=== PATIENT | male | born 1950 | race Caucasian/White ===

== ENCOUNTER 2019-01-28 22:03 | Observation (INO) | payer MEDICARE, BC ==
--- OUTSIDE RECORDS SUMMARY | 2019-01-28 22:40 | XMS REPORT | Summary of Care ---
:1950 Author Organization [facility] Address [address] [place] [address] Care Team Providers Name Role Phone Jyoti Zamora MD Primary Care Provider Reason for Visit Reason Comments ED To ED Transfer Hematemesis Auth/Cert Status Reason Specialty Diagnoses / Procedures Referred By Contact Referred To Contact Diagnoses Hemoptysis Pneumonia of left upper lobe due to infectious organism Hemoptysis Encounter Details Date Type Department Care Team Description 01/25/2019 - Hospital 06E BURN ICU Saravanan Parmar MD [address] [place] [address] [phone] Pneumonia of left upper lobe due to infectious organism ( Primary Dx); 01/26/2019 Encounter [address] [facility] Valeriano Ramesh III, MD [address] [place] [address] [phone] Hemoptysis [place], [place] Terence Ellsworth MD [address] [facility] 2nd Floor [address] [place] [address] [phone] [id number] Allergies No Known Allergiesdocumented as of this encounter (statuses as of 01/26/2019) Medications Medication Sig Dispensed Refills Start Date End Date Status Rivaroxaban 20 MG Take 20 mg by 0 01/07/2019 Active Oral Tablet mouth daily (XARELTO) with dinner Atenolol 100 MG Take 100 mg 0 02/23/2018 Active Oral Tablet by mouth (TENORMIN) daily dilTIAZem HCl ER Take 2 30 capsule 1 01/26/2019 Active Coated Beads 120 capsules by MG Oral Capsule mouth daily Extended Release 24 Hour (CARDIZEM CD) levoFLOXacin 500 Take 1 tablet 7 tablet 0 01/26/2019 Active MG Oral Tablet by mouth 9 (LEVAQUIN) daily for 7 days dilTIAZem HCl ER Take 120 mg 0 02/23/2018 Discontinued Coated Beads 120 by mouth 9 (Reorder) MG Oral Capsule daily Extended Release 24 Hour (CARDIZEM CD) documented as of this encounter (statuses as of 01/26/2019) Active Problems Problem Noted Date Hemoptysis 01/25/2019 documented as of this encounter (statuses as of 01/26/2019) Social History Tobacco Use Types Packs/Day Years Used Date Former Smoker Smokeless Tobacco: Never Used Alcohol Use Drinks/Week oz/Week Comments Yes 6 Cans of beer 6.0 Sex Assigned at Date Recorded Not on file Job Start Date Occupation Industry Not on file Not on file Not on file Travel History Travel Start Travel End No recent travel history available. documented as of this encounter Last Filed Vital Signs Vital Sign Reading Time Taken Comments Blood Pressure 137/102 01/26/2019 1:00 PM EST Pulse 115 01/26/2019 2:00 PM EST Temperature 36.6 01/26/2019 12:00 PM C (97.9 EST F) Respiratory Rate 26 01/26/2019 2:00 PM EST Oxygen Saturation 89% 01/26/2019 2:00 PM EST Inhaled Oxygen Concentration - - Weight 116.7 kg (257 lb 4.4 oz) 01/25/2019 1:00 PM EST Height 195.6 cm (6' 5") 01/25/2019 1:00 PM EST Body Mass Index 30.51 01/25/2019 1:00 PM EST documented in this encounter Progress Notes Shelby Taversa, RN - 01/26/2019 2:13 PM EST 1100: Patients HR reaching into the 130's, Cardizem PO dose given 1135: Dr. Villalta notified of pt's HR despite Cardizem dose. 1145: One time dose of extra Cardizem ordered and given 1215: Dr. Ellsworth and team at bedside and pt's elevated HR and oxygen saturation discussed. Team to order pt's home dose of atenolol. Patient wishes to leave AMA. Risk factors explained and educated about complications of leaving AMA. Throughout day patient refusing to get OOB to chair or take a walk. Patient refusing to wear nasal canula, despite pt's 02 fluctuating between 87% and 92%. Patient educated on oxygen needs and was given and incentive spirometer and instructed on how to use it. Offered food once NPO order changed, patient stated "I do not want to eat, I will when I go home." Team aware Elsi Logan with Social work notified and at bedside. Discharge instructions reviewed with patient and . No further questions at this time. IV's removed. HR now in the low 100s/1 teens, BP stable. Patient instructed to use the incentive spirometer at home. Awaiting wheelchair to lobby. Elsi Arroyo [facility] - 01/26/2019 2:11 PM ESTSocial Work Note: SW was informed by RN that patient was requesting to leave Against Medical Advice. SW met with patient and his at bedside. They denied any SW needs and indicated that they wanted to leave. The patient's informed SW that they live close to a local hospital and will take him if there are any concerns. Elsi Logan [facility] Samreen Lennon RN - 01/25/2019 5:13 PM ESTPt stood at bedside to void in urinal with success. Pt SOB and tachicardic with this exertions. Pt placed on 2L nasal canula for comfort.Electronically signed by Samreen Corrales RN at 2018 5:15 PM Farhan Gay PharmD - 01/25/2019 3:34 PM EST Pharmacy Medication History Review Patient's Medications Previous Medications ATENOLOL 100 MG ORAL TABLET (TENORMIN) Take 100 mg by mouth daily Notes: -- DILTIAZEM HCL ER COATED BEADS 120 MG ORAL CAPSULE EXTENDED RELEASE 24 HOUR ( CARDIZEM CD) Take 120 mg by mouth daily Notes: -- RIVAROXABAN 20 MG ORAL TABLET (XARELTO) Take 20 mg by mouth daily with dinner Notes: -- The following medications have been added: The following medications have been removed: The following medications have been modified: atenolol, diltiazem The patient takes the following medications differently than prescribed: Medication History Source: [facility] [address] [place] [address] [place] [address] The above prior to admission medications have been compared to current inpatient orders. Discrepancies: Home medications not currently ordered. Recommendations: Please consider ordering missing home medications if/when appropriate. Medication history was completed based on information available during this patient encounter, the list above may not be all inclusive. Thank you, Farhan Cyr PharmD Jasiel Bee PharmD - 01/25/2019 8:37 AM EST Pharmacy Medication History Review Flo Valles'jess medication history was completed in the emergency department by a medication history component technician and independently reviewed by myself. Previous Medications ATENOLOL 100 MG ORAL TABLET (TENORMIN) Take 100 mg by mouth daily DILTIAZEM HCL ER COATED BEADS 120 MG ORAL CAPSULE EXTENDED RELEASE 24 HOUR ( CARDIZEM CD) Take 120 mg by mouth daily RIVAROXABAN 20 MG ORAL TABLET (XARELTO) Take 20 mg by mouth daily with dinner Medication History Source: [facility] [address] [place] [address] [place] [address] Jasiel Martínez PharmD Emergency Department Pharmacist Medication history was completed based on information available during this patient encounter, the list above may not be all inclusive. documented in this encounter Plan of Treatment Name Type Priority Associated Diagnoses Date/Time Blood culture ; Microbiology Routine 01/26/2019 5:16 AM Peripheral EST Blood culture ; Microbiology Routine 01/26/2019 5:16 AM Peripheral EST Name Type Priority Associated Order Schedule Diagnoses Oxygen Orders: Nasal Respiratory Care Routine Continuous for 30 Cannula; Liters per days for 30 Days minute: 2 LPM; D/C starting 01/25/2019 Oxygen 48hrs After until 02/24/2019 Being on Room Air: Yes; Wean/Titrate O2 to Keep Sats =>: 89 Basic Metabolic Lab Routine AM Draw for 5 Days Panel starting 01/25/2019 until 01/29/2019, 2 completed Magnesium Level Lab Routine AM Draw for 30 Days starting 01/25/2019 until 02/23/2019, 2 completed Phosphorus Level Lab Routine AM Draw for 30 Days starting 01/25/2019 until 02/23/2019, 2 completed Potassium Level Lab Timed As Needed for 1 Occurrences starting 01/25/2019 until 01/31/2019 Magnesium Level Lab Timed As Needed for 1 Occurrences starting 01/25/2019 until 01/31/2019 Phosphorus Level Lab Timed As Needed for 1 Occurrences starting 01/25/2019 until 01/31/2019 Calcium, ionized Lab Timed As Needed for 1 Occurrences starting 01/25/2019 until 01/31/2019 Legionella culture Microbiology Routine Once for 1 respiratory specimen Occurrences starting 01/25/2019 until 01/25/2019 Sputum Culture; Microbiology Routine Once for 1 Sputum Occurrences starting 01/25/2019 until 01/25/2019 Blood culture ; Microbiology Routine Once for 1 Peripheral Occurrences starting 01/25/2019 until 01/25/2019 Blood culture ; Microbiology Routine Once for 1 Peripheral Occurrences starting 01/25/2019 until 01/25/2019 Blood culture ; Microbiology Routine Once for 1 Peripheral Occurrences starting 01/26/2019 until 01/26/2019 Blood culture ; Microbiology Routine Once for 1 Peripheral Occurrences starting 01/26/2019 until 01/26/2019 Sputum Culture; Microbiology Routine Once for 1 Sputum Occurrences starting 01/26/2019 until 01/26/2019 CBC Lab Timed Every 6 Hours for 30 Days starting 01/26/2019 until 02/25/2019, 1 completed documented as of this encounter Procedures Procedure Name Priority Date/Time Associated Comments Diagnosis CBC Timed 01/26/2019 11:48 Results for this AM EST procedure are in the results section. RESPIRATORY PANEL Routine 01/26/2019 8:16 Results for this AM EST procedure are in the results section. HEPATITIS C ANTIBODY Routine 01/26/2019 5:16 Results for this AM EST procedure are in the results section. CBC Routine 01/26/2019 5:16 Results for this AM EST procedure are in the results section. PHOSPHORUS LEVEL Routine 01/26/2019 5:16 Results for this AM EST procedure are in the results section. MAGNESIUM LEVEL Routine 01/26/2019 5:16 Results for this AM EST procedure are in the results section. CALCIUM, IONIZED Routine 01/26/2019 5:16 Results for this AM EST procedure are in the results section. BASIC METABOLIC PANEL Routine 01/26/2019 5:16 Results for this AM EST procedure are in the results section. XR CHEST FRONTAL ONLY Routine 01/26/2019 2:57 Results for this [address] AM EST procedure are in the results section. LEGIONELLA ANTIGEN, Routine 01/25/2019 10:27 Results for this URINE AM EST procedure are in the results section. CBC Routine 01/25/2019 8:35 Results for this AM EST procedure are in the results section. PHOSPHORUS LEVEL Routine 01/25/2019 8:35 Results for this AM EST procedure are in the results section. MAGNESIUM LEVEL Routine 01/25/2019 8:35 Results for this AM EST procedure are in the results section. BASIC METABOLIC PANEL Routine 01/25/2019 8:35 Results for this AM EST procedure are in the results section. EKG ED PHYSICIAN Routine 01/25/2019 7:09 Results for this INTERPRETATION AM EST procedure are in the results section. CT THORAX WITH CONTRAST STAT 01/25/2019 6:19 [place] this [address] AM EST procedure are in the results section. CT ABDOMEN PELVIS WITH STAT 01/25/2019 6:19 Results for this CONTRAST 03732 AM EST procedure are in the results section. POCT ISTAT CHEM8 Routine 01/25/2019 5:53 Results for this AM EST procedure are in the results section. EKG 12-LEAD - CMAXX 01/25/2019 5:52 REPORT AM EST EKG 12-LEAD - CMAXX 01/25/2019 5:52 REPORT AM EST EKG 12-LEAD STAT 01/25/2019 5:52 Results for this AM EST procedure are in the results section. POCT ISTAT TROPONIN Routine 01/25/2019 5:47 Results for this AM EST procedure are in the results section. POCT ISTAT VBG/LAC Routine 01/25/2019 5:45 Results for this AM EST procedure are in the results section. PARTIAL THROMBOPLASTIN STAT 01/25/2019 5:40 Results for this TIME (PTT) AM EST procedure are in the results section. PROTIME INR STAT 01/25/2019 5:40 Results for this AM EST procedure are in the results section. FIBRINOGEN LEVEL STAT 01/25/2019 5:40 Results for this AM EST procedure are in the results section. CBC AND DIFFERENTIAL STAT 01/25/2019 5:40 Results for this AM EST procedure are in the results section. LIPASE LEVEL STAT 01/25/2019 5:40 Results for this AM EST procedure are in the results section. HEPATIC FUNCTION PANEL STAT 01/25/2019 5:40 Results for this A AM EST procedure are in the results section. BASIC METABOLIC PANEL STAT 01/25/2019 5:40 Results for this AM EST procedure are in the results section. documented in this encounter Results CBC (01/26/2019 11:48 AM EST) White Blood Cell 9.3 4 - 10 10*3/uL [facility] Pathology Red Blood Cell 3.57 (L) 4.6 - 6.1 [facility] 10*6/uL [facility] Pathology Hemoglobin 11.4 (L) 13.5 - 18 g/dL [facility]ology Hematocrit 33.8 (L) 41 - 53 % [facility] Mean Cell Volume 94.7 80 - 96 fL [facility] Mean Cell Hemoglobin 31.9 27 - 33 pg [facility] Mean Cell Hgb Conc 33.7 32.0 - 36.0 [facility] g/dL [facility] Pathology Red Cell Dist Width 13.5 11.5 - 14.5 % [facility] Pathology Platelet Count 182 150 - 400 [facility] 10*3/uL [facility] Pathology Specimen EDTA Whole Blood Performing Organization Address City/State/Zipcode Phone Number [facility] [address] [place] [address] [phone] [facility] [address] [place] [address] Pathology Respiratory Panel (01/26/2019 8:16 AM EST) Special Request None [facility] PATH[facility] Culture/Results Polymerase chain reaction is NEGATIVE for Influenza A H1, H3 and 2009 H1 viruses, Influenza B virus, Respiratory syncytial virus, Human metapneumovirus, Parainfluenza virus 1, 2, 3 and 4, Adenovirus, Rh [facility] inovirus/Enterovirus, Coronavirus HKU1, NL63, OC43, Univ [facility] and 229E, Bordetella pertussis, Mycoplasma pneumoniae and Chlamydia pneumoniae. Pathology Specimen Nasopharyngeal Swab Performing Organization Address City/[facility] Phone Number [facility] [address] [place] [address] [facility] [address] [place] [address] Pathology CBC (01/26/2019 5:16 AM EST) White Blood Cell 9.7 4 - 10 10*3/uL [facility]ology Red Blood Cell 3.60 (L) 4.6 - 6.1 [facility] 10*6/uL [facility] Pathology Hemoglobin 11.4 (L) 13.5 - 18 g/dL [facility]ology Hematocrit 34.6 (L) 41 - 53 % [facility] Mean Cell Volume 96.2 (H) 80 - 96 fL [facility] Mean Cell Hemoglobin 31.5 27 - 33 pg [facility] Mean Cell Hgb Conc 32.8 32.0 - 36.0 [facility] g/dL [facility] Pathology Red Cell Dist Width 14.0 11.5 - 14.5 % [facility] Pathology Platelet Count 167 150 - 400 [facility] 10*3/uL [facility] Pathology Specimen EDTA Whole Blood Performing Organization Address [facility] Phone Number [facility] [address] [place] [address] [facility] [address] [place] [address] Pathology Calcium, ionized (01/26/2019 5:16 AM EST) Pathologist [facility] Calcium Ionized,W.B. 1.03 (L) 1.13 - 1.32 [facility] mmol/L [facility] Pathology Specimen Whole Blood Performing Organization Address City/[facility] Phone Number [facility] [address] [place] [address] [facility] [address] [place] [address] Pathology Hepatitis C antibody (01/26/2019 5:16 AM EST) Pathologist [facility] Hepatitis C Ab Non ReactiveComment: Non Reactive [facility] No serological Univ [facility] evidence of active Pathology infection. If recent exposure is suspected, test for HCV RNA. Specimen Serum Performing Organization Address [facility] Phone Number [facility] [address] [place] [address] [facility] [address] [place] [address] Pathology Phosphorus Level (01/26/2019 5:16 AM EST) Phosphorus 1.9 (L) 2.5 - 4.5 mg/dL [facility] Specimen Plasma Performing Organization Address [facility] Phone Number [facility] [address] [place] [address] [facility] [address] [place] [address] Pathology Magnesium Level (01/26/2019 5:16 AM EST) Magnesium 2.0 1.6 - 2.4 mg/dL [facility] Specimen Plasma Performing Organization Address [facility] Phone Number [facility] [address] [place] [address] [phone] [facility] [address] [place] [address] Pathology Basic Metabolic Panel (01/26/2019 5:16 AM EST) Bicarbonate 22 22 - 29 mmol/L [facility]ology Chloride 101 98 - 107 mmol/L [facility] Creatinine 1.08 0.70 - 1.20 [facility] mg/dL [facility] Pathology Glucose 132 70 - 140 mg/dL [facility] Potassium 4.1 3.4 - 5.1 [facility] mmol/L [facility] Pathology Sodium 137 136 - 145 [facility] mmol/L [facility] Pathology Blood Urea Nitrogen 28 (H) 8 - 23 mg/dL [facility]ology Anion Gap 14 8 - 15 mmol/L [facility]ology Osmolality, Luis 291 275 - 300 [facility] mosm/kg [facility] Pathology BUN/Cre Ratio 26 [facility] Calcium 8.4 (L) 8.8 - 10.2 [facility] mg/dL [facility] Pathology GFR Non 70 >60 [facility] [place] 2009 CDK-EPI mL/min/1.73m2 [facility] Pathology GFR 81 >60 [facility] 2009 CKD-EPI mL/min/1.73m2 [facility] Pathology Specimen Plasma Performing Organization Address City/State/Zipcode Phone Number [facility] [address] [place] [address] [facility] [address] [place] [address] Pathology XR Chest Frontal Only (01/26/2019 2:57 AM EST) Specimen Narrative Performed At PROCEDURE INFORMATION: [facility] Exam: XR Chest, 1 View Exam date and time: 01/26/2019 2:47 AM Age: 68 years old Clinical history: Lobar pneumonia, unspecified organism; Hemoptysis; Other: Cap TECHNIQUE: Imaging protocol: XR of the chest Views: 1 view. COMPARISON: DX PORTABLE AP CHEST 01/25/2019 2:43 AM FINDINGS: Lungs: Mild hazy and patchy air space opacity let upper lobe as seen on prior study. Pleural space: Unremarkable. No pleural effusion. No pneumothorax. Heart/Mediastinum: Upper normal size of the cardiomediastinal silhouette. Vasculature: Thoracic aorta is mildly unfolded. Bones/joints: Chronic-degenerative changes involve the thoracic spine and bilateral shoulders. Other findings: Few overlying wires. IMPRESSION: Findings suspicious for left upper lobe consolidation/pneumonia. THIS DOCUMENT HAS BEEN ELECTRONICALLY SIGNED BY GRZEGORZ PAINTER MD Procedure Note Interface, Received Via [employer] - 01/26/2019 4:04 AM EST PROCEDURE INFORMATION: Exam: XR Chest, 1 View Exam date and time: 01/26/2019 2:47 AM Age: 68 years old Clinical history: Lobar pneumonia, unspecified organism; Hemoptysis; Other: Cap TECHNIQUE: Imaging protocol: XR of the chest Views: 1 view. COMPARISON: DX PORTABLE AP CHEST 01/25/2019 2:43 AM FINDINGS: Lungs: Mild hazy and patchy air space opacity let upper lobe as seen on prior study. Pleural space: Unremarkable. No pleural effusion. No pneumothorax. Heart/Mediastinum: Upper normal size of the cardiomediastinal silhouette. Vasculature: Thoracic aorta is mildly unfolded. Bones/joints: Chronic-degenerative changes involve the thoracic spine and bilateral shoulders. Other findings: Few overlying wires. IMPRESSION: Findings suspicious for left upper lobe consolidation/pneumonia. THIS DOCUMENT HAS BEEN ELECTRONICALLY SIGNED BY GRZEGORZ PAINTER MD Performing Organization Address City/[facility]/Zipcode Phone Number [facility] [address] [place] [address] Legionella antigen, urine (01/25/2019 10:27 AM EST) Special Request None [facility] Culture/Results Urine NEGATIVE for L. [facility] pneumophila serogroup 1 [facility] antigen by Pathology immunochromatographic assay. This test does not detect infections due to other L. pneumophila serogroups or to other Legionella species. Specimen Urine Performing Organization Address [facility] Phone Number [facility] [address] [place] [address] [phone] [facility] [address] [place] [address] Pathology CBC (01/25/2019 8:35 AM EST) White Blood Cell 9.7 4 - 10 10*3/uL [facility] Red Blood Cell 3.69 (L) 4.6 - 6.1 [facility] 10*6/uL [facility] Pathology Hemoglobin 11.7 (L) 13.5 - 18 g/dL [facility] Hematocrit 34.9 (L) 41 - 53 % [facility] Mean Cell Volume 94.8 80 - 96 fL [facility] Mean Cell Hemoglobin 31.6 27 - 33 pg [facility] Mean Cell Hgb Conc 33.4 32.0 - 36.0 [facility] g/dL [facility] Pathology Red Cell Dist Width 13.3 11.5 - 14.5 % [facility] Pathology Platelet Count 186 150 - 400 [facility] 10*3/uL [facility] Pathology Specimen EDTA Whole Blood Performing Organization Address City/[facility] Phone Number [facility] [address] [place] [address] [facility] [address] [place] [address] Pathology Phosphorus Level (01/25/2019 8:35 AM EST) Phosphorus 3.2 2.5 - 4.5 mg/dL [facility] Specimen Plasma Performing Organization Address City/[facility]/Zipcode Phone Number [facility] [address] [place] [address] [phone] [facility] [address] [place] [address] Pathology Magnesium Level (01/25/2019 8:35 AM EST) Magnesium 1.7 1.6 - 2.4 mg/dL [facility] Specimen Plasma Performing Organization Address [facility] Phone Number [facility] [address] [place] [address] [facility] [address] [place] [address] Pathology Basic Metabolic Panel (01/25/2019 8:35 AM EST) Bicarbonate 21 (L) 22 - 29 mmol/L [facility] Chloride 105 98 - 107 mmol/L [facility] Creatinine 0.94 0.70 - 1.20 [facility] mg/dL [facility] Pathology Glucose 150 (H) 70 - 140 mg/dL [facility] Potassium 4.8 3.4 - 5.1 [facility] mmol/L [facility] Pathology Sodium 138 136 - 145 [facility] mmol/L [facility] Pathology Blood Urea Nitrogen 19 8 - 23 mg/dL [facility] Anion Gap 13 8 - 15 mmol/L [facility]ology Osmolality, Luis 290 275 - 300 [facility] mosm/kg [facility] Pathology BUN/Cre Ratio 20 [facility] Calcium 8.3 (L) 8.8 - 10.2 [facility] mg/dL [facility] Pathology GFR Non 85 >60 [facility] [place] 2009 CDK-EPI mL/min/1.73m2 [facility] Pathology GFR >90 >60 [facility] 2009 CKD-EPI mL/min/1.73m2 [facility] Pathology Specimen Plasma Performing Organization Address [facility] Phone Number [facility] [address] [place] [address] [facility] [address] [place] [phone] Pathology 1ED EKG Interpretation (01/25/2019 7:09 AM EST) Narrative Performed At Saravanan Parmar MD EXTERNAL NON-INTERFACED LAB 01/25/2019 7:10 AM 1ED EKG Interpretation Date/Time: 01/25/2019 5:52 AM Performed by: Saravanan Parmar MD Authorized by: Saravanan Parmar MD Previous ECG: Previous ECG: Unavailable Interpretation: Interpretation: abnormal Rate: ECG rate: 117 ECG rate assessment: tachycardic Rhythm: Rhythm: atrial fibrillation Ectopy: Ectopy: none QRS: QRS axis: Normal Conduction: Conduction: normal ST segments: ST segments: Non-specific T waves: T waves: non-specific Comments: afibb with RVR at 117 No STEMI Performing Organization Address City/State/Zipcode Phone Number EXTERNAL NON-INTERFACED LAB CT Abdomen Pelvis with Contrast (01/25/2019 6:19 AM EST) Specimen Narrative Performed At PROCEDURE INFORMATION: [facility] Exam: CT Abdomen And Pelvis With Contrast Exam date and time: 01/25/2019 6:06 AM Age: 68 years old Clinical history: Other: Evaluate for bleeding; Additional info: Evaluate for intrabdominal bleeding sources. Hemoptysis but HX of ETOH use and on xarelto . TECHNIQUE: Imaging protocol: Computed tomography of the abdomen and pelvis with intravenous contrast. Radiation optimization: All CT scans at this facility use at least one of these dose optimization techniques: automated exposure control; mA and/or kV adjustment per patient size (includes targeted exams where dose is matched to clinical indication); or iterative reconstruction. Contrast material: OMNNI 300; Contrast volume: 100 ml; Contrast route: IV; COMPARISON: No relevant prior studies available. FINDINGS: Lungs: For chest finding, please see the dedicated CT of chest of same day for details. Liver: The liver appears unremarkable. Gallbladder and bile ducts: The gallbladder appears unremarkable. No calcified stones. No significant ductal dilatation. Pancreas: The pancreas is unremarkable. No significant ductal dilatation. Spleen: The spleen is unremarkable. Adrenals: The adrenal glands are unremarkable. Kidneys and ureters: A 1.7 cm right renal cyst (HU 16). No hydronephrosis. Nonspecific bilateral perinephric stranding. Stomach and bowel: Colonic diverticulosis with no evidence of acute diverticulitis. No bowel obstruction. Apparent mild mucosal thickening of the ascending and transverse colon, likely due to under distension/peristalsis. No significant surrounding fat stranding to suggest acute inflammation. Appendix: The appendix is not well visualized. Intraperitoneal space: No free air. No significant fluid collection. Vasculature: Atherosclerosis. No aortic aneurysm. Lymph nodes: Unremarkable. No enlarged lymph nodes. Bladder: The bladder appears unremarkable. Reproductive: Unremarkable as visualized. Bones/joints: Degenerative changes in the spine. Soft tissues: Unremarkable. IMPRESSION: Colonic diverticulosis with no evidence of acute diverticulitis. THIS DOCUMENT HAS BEEN ELECTRONICALLY SIGNED BY ALISE SANCHEZ MD Procedure Note Interface, Received Via [employer] - 01/25/2019 6:48 AM EST PROCEDURE INFORMATION: Exam: CT Abdomen And Pelvis With Contrast Exam date and time: 01/25/2019 6:06 AM Age: 68 years old Clinical history: Other: Evaluate for bleeding; Additional info: Evaluate for intrabdominal bleeding sources. Hemoptysis but HX of ETOH use and on xarelto . TECHNIQUE: Imaging protocol: Computed tomography of the abdomen and pelvis with intravenous contrast. Radiation optimization: All CT scans at this facility use at least one of these dose optimization techniques: automated exposure control; mA and/or kV adjustment per patient size (includes targeted exams where dose is matched to clinical indication); or iterative reconstruction. Contrast material: OMNNI 300; Contrast volume: 100 ml; Contrast route: IV; COMPARISON: No relevant prior studies available. FINDINGS: Lungs: For chest finding, please see the dedicated CT of chest of same day for details. Liver: The liver appears unremarkable. Gallbladder and bile ducts: The gallbladder appears unremarkable. No calcified stones. No significant ductal dilatation. Pancreas: The pancreas is unremarkable. No significant ductal dilatation. Spleen: The spleen is unremarkable. Adrenals: The adrenal glands are unremarkable. Kidneys and ureters: A 1.7 cm right renal cyst (HU 16). No hydronephrosis. Nonspecific bilateral perinephric stranding. Stomach and bowel: Colonic diverticulosis with no evidence of acute diverticulitis. No bowel obstruction. Apparent mild mucosal thickening of the ascending and transverse colon, likely due to under distension/peristalsis. No significant surrounding fat stranding to suggest acute inflammation. Appendix: The appendix is not well visualized. Intraperitoneal space: No free air. No significant fluid collection. Vasculature: Atherosclerosis. No aortic aneurysm. Lymph nodes: Unremarkable. No enlarged lymph nodes. Bladder: The bladder appears unremarkable. Reproductive: Unremarkable as visualized. Bones/joints: Degenerative changes in the spine. Soft tissues: Unremarkable. IMPRESSION: Colonic diverticulosis with no evidence of acute diverticulitis. THIS DOCUMENT HAS BEEN ELECTRONICALLY SIGNED BY ALISE SANCHEZ MD Performing Organization Address City/State/Zipcode Phone Number [facility] [address] [place] [address] CT Thorax with Contrast (01/25/2019 6:19 AM EST) Specimen Narrative Performed At PROCEDURE INFORMATION: [facility] Exam: CT Chest With Contrast Exam date and time: 01/25/2019 6:06 AM Age: 68 years old Clinical history: Other: Hemoptysis; Additional info: Concern for hemoptysis. On xarelto TECHNIQUE: Imaging protocol: Computed tomography of the chest with intravenous contrast. 3D rendering: MIP reconstructed images were created and reviewed. Radiation optimization: All CT scans at this facility use at least one of these dose optimization techniques: automated exposure control; mA and/or kV adjustment per patient size (includes targeted exams where dose is matched to clinical indication); or iterative reconstruction. Contrast material: OMNI 300; Contrast volume: 100 ml; Contrast route: IV; COMPARISON: DX PORTABLE AP CHEST 01/25/2019 2:43 AM FINDINGS: Lungs: Centrilobular and paraseptal emphysema. Patchy ground-glass opacities with numerous centrilobular nodules in the bilateral lungs, most significantly in the left upper lobe, most consistent with pneumonia. Pleural space: No pneumothorax. No pleural effusion. Heart: Mild cardiomegaly. No pericardial effusion. Aorta: Ectatic ascending aorta measuring up to 4.1 cm in AP diameter. Lymph nodes: Prominent mediastinal lymph nodes. Bones/joints: Degenerative changes in the spine. Soft tissues: Unremarkable. For abdominal finding, please see the dedicated CT of abdomen and pelvis of same day for details. IMPRESSION: Patchy ground-glass opacities with numerous centrilobular nodules in the bilateral lungs, most significantly in the left upper lobe, most consistent with pneumonia. Follow-up study is recommended to evaluate its resolution or progression. THIS DOCUMENT HAS BEEN ELECTRONICALLY SIGNED BY ALISE SANCHEZ MD Procedure Note Interface, Received Via [employer] - 01/25/2019 6:45 AM EST PROCEDURE INFORMATION: Exam: CT Chest With Contrast Exam date and time: 01/25/2019 6:06 AM Age: 68 years old Clinical history: Other: Hemoptysis; Additional info: Concern for hemoptysis. On xarelto TECHNIQUE: Imaging protocol: Computed tomography of the chest with intravenous contrast. 3D rendering: MIP reconstructed images were created and reviewed. Radiation optimization: All CT scans at this facility use at least one of these dose optimization techniques: automated exposure control; mA and/or kV adjustment per patient size (includes targeted exams where dose is matched to clinical indication); or iterative reconstruction. Contrast material: OMNI 300; Contrast volume: 100 ml; Contrast route: IV; COMPARISON: DX PORTABLE AP CHEST 01/25/2019 2:43 AM FINDINGS: Lungs: Centrilobular and paraseptal emphysema. Patchy ground-glass opacities with numerous centrilobular nodules in the bilateral lungs, most significantly in the left upper lobe, most consistent with pneumonia. Pleural space: No pneumothorax. No pleural effusion. Heart: Mild cardiomegaly. No pericardial effusion. Aorta: Ectatic ascending aorta measuring up to 4.1 cm in AP diameter. Lymph nodes: Prominent mediastinal lymph nodes. Bones/joints: Degenerative changes in the spine. Soft tissues: Unremarkable. For abdominal finding, please see the dedicated CT of abdomen and pelvis of same day for details. IMPRESSION: Patchy ground-glass opacities with numerous centrilobular nodules in the bilateral lungs, most significantly in the left upper lobe, most consistent with pneumonia. Follow-up study is recommended to evaluate its resolution or progression. THIS DOCUMENT HAS BEEN ELECTRONICALLY SIGNED BY ALISE SANCHEZ MD Performing Organization Address City/State/Zipcode Phone Number [facility] [address] [place] [address] POCT i-STAT Chem 8 (01/25/2019 5:53 AM EST) i-STAT Sodium 138 136 - 145 [facility] mmol/L [facility] POC i-STAT Potassium 4.9 3.4 - 5.1 [facility] mmol/L [facility] POC i-STAT Chloride 105 98 - 107 mmol/L [facility] POC i-STAT TCO2 23 22 - 29 mmol/L [facility] POC i-STAT Ionized 1.17 1.13 - 1.32 [facility] Calcium mmol/L [facility] POC i-STAT Glucose 168 (H) 70 - 140 mg/dL [facility] POC i-STAT BUN 18 8 - 23 mg/dL [facility] POC i-STAT Creatinine 1.0 0.70 - 1.20 [facility] mg/dL [facility] POC i-STAT Hematocrit 39 (L) 41 - 53 % [facility] POC i-STAT Hemoglobin 13.3 (L) 13.5 - 18.0 [facility] g/dL [facility] POC Specimen Whole Blood Performing Organization Address City/[facility]/Zipcode Phone Number POINT OF CARE TEST [address] [place] [address] [facility] POC [address] [place] [address] EKG 12-LEAD - CMAXX REPORT (01/25/2019 5:52 AM EST) Narrative Performed At EKG 12-LEAD - CMAXX REPORT (01/25/2019 5:52 AM EST) Narrative Performed At EKG 12 lead (01/25/2019 5:52 AM EST) Specimen Narrative Performed At Ventricular Rate: [facility] EKG 117 BPM Atrial Rate: 87 BPM QRS Duration: 76 ms Q-T Interval: 352 ms QTC Calculation(Bazett): 491 ms R Preble: 51 degrees T Preble: 49 degrees : ATRIAL FIBRILLATION WITH RAPID VENTRICULAR RESPONSE : RSR' OR QR PATTERN IN V1 SUGGESTS RIGHT VENTRICULAR CONDUCTION : DELAY : NONSPECIFIC ST AND T WAVE ABNORMALITY : ABNORMAL ECG : NO PREVIOUS ECGS AVAILABLE : Confirmed by MD CEBALLOS DANIEL ([id number]) on 01/25/2019 8:51:58 : AM Procedure Note Interface, Received Via [employer] - 01/25/2019 8:52 AM EST Ventricular Rate: 117 BPM Atrial Rate: 87 BPM QRS Duration: 76 ms Q-T Interval: 352 ms QTC Calculation(Bazett): 491 ms R Preble: 51 degrees T Preble: 49 degrees : ATRIAL FIBRILLATION WITH RAPID VENTRICULAR RESPONSE : RSR' OR QR PATTERN IN V1 SUGGESTS RIGHT VENTRICULAR CONDUCTION : DELAY : NONSPECIFIC ST AND T WAVE ABNORMALITY : ABNORMAL ECG : NO PREVIOUS ECGS AVAILABLE : Confirmed by MD CEBALLOS DANIEL ([id number]) on 01/25/2019 8:51:58 : AM Performing Organization Address City/[facility]/Zipcode Phone Number [facility] EKG POCT i-STAT Troponin (01/25/2019 5:47 AM EST) i-STAT Troponin I 0.00 0.00 - 0.08 ng/mL [facility] POC Specimen Whole Blood Performing Organization Address City/[facility] Phone Number POINT OF CARE TEST [address] [place], [place] [id number] [place] [address] POC [address] [place] [address] POCT i-STAT VBG Lactic Acid (01/25/2019 5:45 AM EST) i-STAT Venous pH 7.32 (L) 7.36 - 7.41 [facility] POC i-STAT Venous PCO2 43 40 - 45 mmHg [facility] POC i-STAT Venous PO2 61 mmHg [facility] POC i-STAT Venous Base NEG 4 mmol/L [facility] POC i-STAT Venous SO2 89 (H) 60 - 85 % [facility] POC i-STAT Venous Lactic 1.6 0.5 - 2.2 mmol/L [facility] POC i-STAT Venous Total 23 mmol/L [address] POC Specimen Whole Blood Performing Organization Address City/[facility] Phone Number POINT OF CARE TEST [address] [place], [place] [phone] [place] [address] POC [address] [place] [address] Fibrinogen Level (01/25/2019 5:40 AM EST) Fibrinogen 393 190 - 450 mg/dl [facility] Pathology Specimen Plasma Performing Organization Address [facility] Phone Number [facility] [address] [place] [address] [phone] [facility] [address] [place] [address] Pathology Partial Thromboplastin Time (PTT) (01/25/2019 5:40 AM EST) PTT Patient (PAT) 36.1 (H) 24.0 - 34.0 s [facility] Pathology Specimen Plasma Performing Organization Address [facility] Phone Number [facility] [address] [place] [address] [facility] [address] [place] [address] Pathology Protime-INR (01/25/2019 5:40 AM EST) PT Patient 21.7 (H) 12.5 - 14.9 [facility] Pathology Int'l Normalized 1.81Comment: Routine [facility] intensity oral [facility] anticoagulation INR is Pathology typically 2.0-3.0. Target INR must be clinically individualized. Specimen Plasma Performing Organization Address [facility] Phone Number [facility] [address] [place] [address] [phone] [facility] [address] [place] [address] Pathology Lipase Level (01/25/2019 5:40 AM EST) Lipase 22 13 - 60 U/L [facility] Pathology Specimen Plasma Performing Organization Address [facility] Phone Number [facility] [address] [place] [address] [phone] [facility] [address] [place] [address] Pathology Hepatic Function Panel (01/25/2019 5:40 AM EST) Albumin 4.1 3.5 - 5.2 g/dL [facility] Pathology Bilirubin, Total 0.3 <1.2 mg/dL [facility] Pathology Bilirubin, Direct <0.2 <0.3 mg/dL [facility] Pathology Alkaline Phosphatase 82 40 - 129 U/L [facility] Pathology AST/SGO 17 <40 U/L [facility] Pathology ALT/SGP 19 <41 U/L [facility] Pathology Total Protein 6.9 6.4 - 8.3 g/dL [facility] Pathology Specimen Plasma Performing Organization Address [facility] Phone Number [facility] [address] [place] [address] [facility] [address] [place] [phone] Pathology Basic Metabolic Panel (01/25/2019 5:40 AM EST) Bicarbonate 20 (L) 22 - 29 mmol/L [facility] Pathology Chloride 101 98 - 107 mmol/L [facility] Pathology Creatinine 0.97 0.70 - 1.20 [facility] mg/dL Univ Clin Pathology Glucose 167 (H) 70 - 140 mg/dL [facility] Pathology Potassium 5.0 3.4 - 5.1 [facility] mmol/L [facility] Pathology Sodium 137 136 - 145 [facility] mmol/L [facility] Pathology Blood Urea Nitrogen 18 8 - 23 mg/dL [facility] Pathology Anion Gap 17 (H) 8 - 15 mmol/L [facility] Pathology Osmolality, Luis 290 275 - 300 [facility] mosm/kg [facility] Pathology BUN/Cre Ratio 18 [facility] Pathology Calcium 8.3 (L) 8.8 - 10.2 [facility] mg/dL [facility] Pathology GFR Non 84 >60 [facility] [place] 2008 CDK-EPI mL/min/1.73m2 [facility] Pathology GFR >90 >60 [facility] 2009 CKD-EPI mL/min/1.73m2 [facility] Pathology Specimen Plasma Performing Organization Address City/State/Zipcode Phone Number [facility] [address] [place] [address] [phone] [facility] [address] [place] [address] Pathology CBC and Differential (01/25/2019 5:40 AM EST) White Blood Cell 10.5 (H) 4 - 10 [facility] 10*3/uL [facility] Pathology Red Blood Cell 3.87 (L) 4.6 - 6.1 [facility] 10*6/uL [facility]ology Hemoglobin 12.0 (L) 13.5 - 18 [facility] g/dL [facility] Pathology Hematocrit 36.4 (L) 41 - 53 % [facility] Pathology Mean Cell Volume 94.1 80 - 96 fL [facility] Pathology Mean Cell Hemoglobin 31.0 27 - 33 pg [facility] Pathology Mean Cell Hgb Conc 32.9 32.0 - 36.0 [facility] g/dL [facility] Pathology Red Cell Dist Width 13.4 11.5 - 14.5 % [facility] Pathology Platelet Count 195 150 - 400 [facility] 10*3/uL [facility] Pathology Differential Type Automated Diff [facility] Pathology Neutrophil 91 % [facility] Pathology Lymphocyte 5 % [facility] Pathology Monocyte 4 % [facility] Pathology Eosinophil 0 % [facility] Pathology Basophil 0 % [facility] Pathology Abs Neutrophil 9.58 (H) 1.8 - 7.0 [facility] 10*3/uL [facility] Pathology Abs Lymphocyte 0.47 (L) 1.2 - 4.0 [facility] 10*3/uL [facility] Pathology Abs Monocyte 0.40 0 - 0.8 [facility] 10*3/uL [facility] Pathology Abs Eosinophil 0.01 0 - 0.5 [facility] 10*3/uL [facility] Pathology Abs Basophil 0.03 0 - 0.2 [facility] 10*3/uL [facility] Pathology Nucleated Red Blood 0 0 - 0 [facility] Cells /100{WBCs} [facility] Pathology Specimen EDTA Whole Blood Performing Organization Address City/State/Zipcode Phone Number [facility] [address] [place] [address] [phone] [facility] [address] [place] [address] Pathology documented in this encounter Visit Diagnoses Diagnosis Pneumonia of left upper lobe due to infectious organism - Primary Hemoptysis Hemoptysis, unspecified documented in this encounter Administered Medications Medication Order MAR Action Action Date Dose Rate Site atenolol (TENORMIN) tablet 100 mg Given 01/26/2019 1:44 PM EST 100 mg 100 mg, Oral, Daily Standard, First dose on Fri01/26/19 at 1315, For 30 days, Check vital signs before administering, azithromycin (ZITHROMAX) 500 mg in New Bag 01/26/2019 7:50 AM EST 500 mg 250 mL/hr sodium chloride 0.9 % 250 mL (2 mg/mL) IVPB 500 mg, Intravenous, at 250 mL/hr, Every 24 hours, First dose on Fri01/26/19 at 0000, For 5 days cefTRIAXone (ROCEPHIN) infusion 1 g New Bag 01/26/2019 7:51 AM EST 1 g 100 mL/hr (premix) 1 g, Intravenous, at 100 mL/hr, Every 24 hours, First dose on Fri01/26/19 at 0800, For 7 days, Discouraged Uses: Empiric treatment of post-surgical meningitis (ceftazidime preferred), dilTIAZem (CARDIZEM) tablet 60 mg 60 mg, Oral, Every 6 hours Standard (4 times per day), First dose (after last modification) on Fri01/26/19 at 1800, For 117 doses, Check vital signs before administering, folic acid (FOLVITE) tablet 1 mg Given 01/26/2019 7:51 AM EST 1 mg 1 mg, Oral, Daily Standard, First dose on Fri01/26/19 at 0900, For 30 days pantoprazole (PROTONIX) EC tablet 40 mg Given 01/26/2019 7:51 AM EST 40 mg 40 mg, Oral, Before Breakfast, First dose on Fri01/26/19 at 0800, For 30 days, Do not crush or chew, potassium chloride 10 mEq in 100 mL IVPB (premix) 10 mEq, Intravenous, Every 1 hour PRN, for serum potassium < 4 mEq/L, Starting Fri01/25/19 at 0818, For 7 days, Serum Potassium 3.7 - 3.9: give 10 mEq q1h x2 Serum Potassium 3.6 and less: give 10 mEq q1h x 4, potassium chloride 20 mEq in 50 mL IVPB (premix) 20 mEq, Intravenous, Every 1 hour PRN, for serum potassium < 4 mEq/L, Starting Fri01/25/19 at 0818, For 7 days, * For patients with continuous ECG monitoring * Serum Potassium 3.7 - 3.9: give 20 mEq q1h x 1 Serum Potassium 3.6 and less: give 20 mEq q1h x 2, potassium phosphate infusion 12 mmol/100 mL (central line) 12 mmol, Intravenous, at 50 mL/hr, Every 2 hours PRN, for serum phosphate < 2.6 mg/dL, Starting Fri01/25/19 at 0818, For 7 days, * For patients with continuous ECG monitoring * DO NOT USE IF SERUM POTASSIUM > 4 mEq/L Potassium content: 17.6 mEq Serum phosphate 2 - 2.5: give 12 mmol q2h x1 Serum phosphate 1.9 and less: give 12 mmol q2h x 2 Slower infusion rates (e.g. over 4 hours) are recommended in patients with renal impairment and/or less severe hypophosphatemia. Product contains 17.6 mEq of potassium., For central line use only. , potassium phosphate infusion 6 mmol/100 mL 6 mmol, Intravenous, at 50 mL/hr, Every 2 hours PRN, for serum phosphate < 2.6 mg/dL, Starting Fri01/25/19 at 0818, For 7 days, Serum phosphate 2 - 2.5: give 6 mmol q2h x2 Serum phosphate 1.9 and less: give 6 mmol q2h x 4, sodium chloride (preservative Given by IV push 01/26/2019 7:51 AM EST 3 mLs free) 0.9 % flush 3 mL 3 mL, Intravenous, Every 8 hours, First dose on Fri01/26/19 at 0800, For 30 days sodium phosphate 12 mmol/100 mL IVPB (central line) 12 mmol, Intravenous, at 50 mL/hr, Every 2 hours PRN, for serum phosphate < 2.6 mg/dL, Starting Fri01/25/19 at 0818, For 7 days, * For patients with continuous ECG monitoring * Serum phosphate 2 - 2.5: give 12 mmol q2h x 1 Serum phosphate 1.9 and less: give 12 mmol q2h x 2 Slower infusion rates (e.g. over 4 to 6 hours) are recommended in patients with renal impairment and/or less severe hypophosphatemia., For central line use only. , sodium phosphate 6 mmol/100 mL IVPB New Bag 01/26/2019 11:43 AM EST 6 mmol 50 mL/hr 6 mmol, Intravenous, at 50 mL/hr, Every 2 hours PRN, for serum phosphate < 2.6 mg/dL, Starting Fri01/25/19 at 0818, For 7 days, Serum phosphate 2 - 2.5: give 6 mmol q2h x 2 Serum phosphate 1.9 and less: give 6 mmol q2h x 4, New Bag 01/26/2019 9:10 AM EST 6 mmol 50 mL/hr Medication Order MAR Action Action Date Dose Rate Site azithromycin (ZITHROMAX) New Bag 01/25/2019 7:49 AM EST 500 mg injection 500 mg 500 mg, Intravenous, Once, Fri01/25/19 at 0645, For 1 dose cefTRIAXone (ROCEPHIN) IVPB (premix) New Bag 01/25/2019 7:49 AM EST 2 g 100 mL/hr 2 g 2 g, Intravenous, Administer over 30 Minutes, Once, Fri01/25/19 at 0645, For 1 dose dilTIAZem (CARDIZEM) 1 mg/mL Rate/Dose Change 01/26/2019 6:00 AM 2 mg/hr 2 mL/hr in sodium chloride 0.9 % 125 EST mL infusion 2.5-20 mg/hr (2.5-20 mL/hr), Intravenous, at 2.5-20 mL/hr, Continuous, Starting Fri01/25/19 at 0830, For 30 days, Starting dose = 2.5 mg/hr Titrate to maintain HR < 110 SBP of 120 Increase by 2.5-5 mg/hr Max Dose = 20 mg/hr Titrate down if SBP < 90, Notify provider if heart rate less than: 60, Notify provider if systolic blood pressure less than: 90 Rate/Dose Change 01/26/2019 5:00 AM EST 3 mg/hr 3 mL/hr Rate/Dose Verify 01/26/2019 4:00 AM EST 4 mg/hr 4 mL/hr dilTIAZem (CARDIZEM) injection 25 mg New Bag 01/25/2019 7:03 AM EST 25 mg 25 mg, Intravenous, Once, Fri01/25/19 at 0700, For 1 dose dilTIAZem (CARDIZEM) tablet 30 mg Given 01/26/2019 11:04 AM EST 30 mg 30 mg, Oral, Every 6 hours Standard (4 times per day), First dose (after last modification) on Fri01/26/19 at 0000, For 30 days, Check vital signs before administering, Given 01/26/2019 6:06 AM EST 30 mg Given 01/26/2019 12:06 AM EST 30 mg dilTIAZem (CARDIZEM) tablet 30 mg Given 01/25/2019 9:56 PM EST 30 mg 30 mg, Oral, Once, Fri01/25/19 at 2145, For 1 dose, Check vital signs before administering, dilTIAZem (CARDIZEM) tablet 30 mg Given 01/26/2019 11:42 AM EST 30 mg 30 mg, Oral, Once, Fri01/26/19 at 1145, For 1 dose, Check vital signs before administering, iohexol (OMNIPAQUE) 300 New Syringe/Cartridge 01/25/2019 6:15 AM 100 mLs Left Arm MG/ML contrast EST injection 100 mL 100 mL, Given by IV, 1 TIME IMAGING, Fri01/25/19 at 0615, For 1 dose octreotide (SANDOSTATIN) 5 New Bag 01/25/2019 5:18 AM EST 50 mcg/hr 10 mL/ hr mcg/mL in sodium chloride 0.9 % 250 mL infusion 50 mcg/hr (10 mL/hr), Intravenous, at 10 mL/hr, Continuous, Starting Fri01/25/19 at 0445, For 30 days pantoprazole (PROTONIX) 0.4 mg/mL New Bag 01/25/2019 5:18 AM EST 8 mg/hr 20 mL/hr in sodium chloride 0.9 % 250 mL infusion 8 mg/hr (20 mL/hr), Intravenous, at 20 mL/hr, Continuous, Starting 01/25/19 at 0445, For 30 days, Indication: Active GI bleed pantoprazole (PROTONIX) Rate/Dose Verify 01/25/2019 8:00 PM EST 8 mg/hr 20 mL/hr 0.4 mg/mL in sodium chloride 0.9 % 250 mL infusion 8 mg/hr (20 mL/hr), Intravenous, at 20 mL/hr, Continuous, Starting 01/25/19 at 1015, For 30 days, Indication: Active GI bleed New Bag 01/25/2019 7:23 PM EST 8 mg/hr 20 mL/hr New Bag 01/25/2019 10:25 AM EST 8 mg/hr 20 mL/hr thiamine (B-1) tablet 100 mg Given 01/25/2019 1:52 PM EST 100 mg 100 mg, Oral, Once, 01/25/19 at 1245, For 1 dose, Upon arrival PRIOR to administration of any glucose containing IVF., documented in this encounter
--- NOTE | 2019-01-29 02:34 | ED ---
Respiratory - HPI Summary HPI Summary: This pt is a 68 Y/O M presenting to [facility] with a CC of hemoptysis that started this evening at 201401/28/19. He states that he was transferred to [facility] from [place] on 01/25/[address] scan of his chest with 2 CXRs. He states that he was taking his given his ABX and started to cough up blood. He states that at home he does not use any O2 at home. 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 He denies any fevers, chest pain, headaches, N/V/D, and abdominal pain. He states that he is feeling better and the mucus is breaking up in his lungs and he has been feeling better without the O2. He states that he has no alleviating factors. He also states that he is on blood thinners. He has a PMHx of AFIB. - History of Current Complaint Chief Complaint: EDGeneral Stated Complaint: COUGHING PER EMS Time Seen by Provider: 01/29/19 01:24 Hx Obtained From: Patient Onset/Duration: Sudden Onset, Still Present Timing: Intermittent Episodes Lasting: - states that he coughed a couple times with blood Current Severity: None Pain Intensity: 0 Character: Cough (Productive) Sputum Amount: Small Sputum Color: Red (Blood) Aggravating Factor(s): Nothing Alleviating Factor(s): Nothing Associated Signs and Symptoms: Negative - fevers, chest pain, headaches, N/V/D, and abdominal pain., SOB, URI - states 01/25/19 Dx of PNA, Hemoptysis - Allergy/Home Medications Allergies/Adverse Reactions: Allergies Allergy/AdvReac Type Severity Reaction Status Date / Time No Known Allergies Allergy Verified 01/28/19 22:13 Home Medications: Home Medications Atenolol TAB* [Tenormin TAB* 50 MG] 100 mg PO DAILY 01/29/19 [History Confirmed 01/29/19] Rivaroxaban TAB(*) [Xarelto 20 mg] 20 mg PO DAILY 01/29/19 [History Confirmed ] dilTIAZem HCl [Cartia Xt] 240 mg PO DAILY 01/29/19 [History Confirmed 01/29/19] levoFLOXacin [Levofloxacin] 1 tab PO DAILY 01/29/19 [History Confirmed 01/29/19] PMH/Surg Hx/FS Hx/Imm Hx Previously Healthy: Yes Cardiovascular History: Reports: Hx Atrial Fibrillation Denies: Hx Hypertension Respiratory History: Denies: Hx Asthma, Hx Chronic Obstructive Pulmonary Disease (COPD) - Cancer History Hx Chemotherapy: No Hx Radiation Therapy: No - Surgical History Surgical History: None - Immunization History Date of Tetanus Vaccine: 7 years ago Immunizations Up to Date: Yes Infectious Disease History: No Infectious Disease History: Denies: Traveled Outside the [place] in Last 30 Days - Family History Known Family History: Negative: Cardiac Disease, Hypertension, Diabetes - Social History Occupation: Employed Full-time, Retired Lives: With Family Alcohol Use: Weekly Hx Substance Use: No Substance Use Type: Reports: None Hx Tobacco Use: No Smoking Status (MU): Former Smoker Type: Pipe Length of Time of Smoking/Using Tobacco: Quit 8 years ago Review of Systems - ROS Summary Review of Systems Summary: Home Medications Medication Instructions Recorded Confirmed Type Atenolol TAB* [Tenormin TAB* 50 MG] 100 mg PO DAILY 01/29/19 01/29/19 History Rivaroxaban TAB(*) [Xarelto 20 mg] 20 mg PO DAILY 01/29/19 01/29/19 History dilTIAZem HCl [Cartia Xt] 240 mg PO DAILY 01/29/19 01/29/19 History levoFLOXacin [Levofloxacin] 1 tab PO DAILY 01/29/19 01/29/19 History Negative: Fever Negative: Chest Pain Positive: Shortness Of Breath, Cough - productive with bloody sputum Negative: Abdominal Pain, Vomiting, Diarrhea, Nausea Negative: Headache All Other Systems Reviewed And Are Negative: Yes Physical Exam - Summary Physical Exam Summary: General: Well-developed, Obese elderly male. No acute distress. HEENT: Normocephalic, Atraumatic. Eyes: Conjuctiva normal, PERRL. Oropharynx: Clear, mucous membranes moist, (-) exudates. Neck: Soft, FROM, (-) lymphadenopathy, (-) thyromegaly, (-) JVD. Cardiovascular: Normal sinus rhythm, (-) murmur, Heart rate is irregularly irregular Lungs: (-) wheezes, Decreased breath sounds bilaterally, left lower lobe bronchi , no wheezing, fair air exchange Abdomen: Soft, non-tender, non-distended, (-) organomegaly, normal bowel sounds. Back: (-) CVA tenderness Extremities: No edema. Skin: Warm, dry, (-) rash. Neuro: Alert and oriented x3, no focal deficits. Psychiatric: Mood normal, affect normal. Triage Information Reviewed: Yes Vital Signs On Initial Exam: Initial Vitals Temp Pulse Resp BP Pulse Ox 98.5 F 112 16 120/86 87 01/28/19 22:05 01/28/19 22:05 01/28/19 22:05 01/28/19 22:05 01/28/19 22:05 Vital Signs Reviewed: Yes Procedures - Sedation Patient Received Moderate/Deep Sedation with Procedure: No Diagnostics - Vital Signs Vital Signs Temp Pulse Resp BP Pulse Ox 01/29/19 00:05 97.1 F 94 16 140/78 93 01/28/19 22:05 98.5 F 112 16 120/86 87 - Laboratory Result Diagrams: 01/29/19 03:03 01/29/19 03:03 Lab Statement: Any lab studies that have been ordered have been reviewed, and results considered in the medical decision making process. - Radiology CXR Radiology Interpretation Completed By: ED Physician Summary of Radiographic Findings: No infiltrate. No pleural effusion. Pending offical review. - CT Chest/thorax CTA CT Interpretation Completed By: Radiologist Summary of CT Findings: 1. No pulmonary embolus 2. Bilateral pulmonary alveolar opacities suggesting pneumonias. 3. Subsegmental atelectasis in the left lower lobe. 4. Coronary artery calcifications. Dr. Bernard has reviewed this radiology report. - EKG 0326 Cardiac Rate: NL - 92 BPM EKG Rhythm: Atrial Fibrillation ST Segment: Normal Ectopy: None EKG Comparison: No Significant Change Summary of EKG Findings: EKG at 0326 reveals Atrial Fibrillation with rate of 92 BPM, no acute changes, no ischemic changes. This EKG was reviewed and interpreted by Dr. Bernard at 0328 01/29/19. Re-Evaluation - Re-Evaluation First Eval Re-Evaluation Time: 05:38 Comment: CTA negative for PE, positive for PNA. Patient taken off O2, put on RA. Will check O2 sat. Second Eval Re-Evaluation Time: 05:50 Change: Worse Comment: Patient ambulated around department, SpO2 dropped to 89. Patient agrees to be admitted to [facility] with dx of PNA and hypoxia. Disposition - Course Course Of Treatment: 68-year-old male presents with hemoptysis. Recently treated for pneumonia at [facility]. Left AMA. Patient hypoxic upon arrival. Workup demonstrates persistent pneumonia. Patient tested off oxygen. Remained hypoxic. Finally agreed to admission for IV antibiotics and oxygen. Referred to hospitalist. - Diagnoses Provider Diagnoses: Hemoptysis, Pneumonia, Hypoxia - Physician Notifications Discussed Care Of Patient With: Deborah Pina Time Discussed With Above Provider: 06:23 Instructed by Provider To: Admit As Observation - Discussed patient case with Dr. Pina, hospitalist, who accepted the patient for admission to [facility]. Discharge ED - Sign-Out/Discharge Documenting (check all that apply): Patient Departure - Admit - Discharge Plan Condition: Fair Disposition: ADMITTED TO [facility] - Billing Disposition and Condition Condition: FAIR Disposition: Admitted to [facility] - Attestation Statements Document Initiated by Marilu: Yes Documenting Scribe: Cole Brewster Provider For Whom Peteribe is Documenting (Include Credential): Jennifer Bernard MD Scribe Attestation: Cole Cantu, scribed for Jennifer Bernard MD on 02/01/19 at 1928. Scribe Documentation Reviewed: Yes Provider Attestation: The documentation as recorded by the Cole rivera accurately reflects the service I personally performed and the decisions made by , Jennifer Bernard MD Status of Scribe Document: Viewed
[2019-01-29 03:15] LABS: ABS Basophils 0.1 10^3/ul (0-0.2); ABS Eosinophils 0.1 10^3/ul (0-0.6); ABS Monocytes 1.1 10^3/ul (0-0.8); ABS Neutrophils 7.7 10^3/ul (1.5-7.7); Eosinophil % 0.8 %; Hematocrit 32 % (42-52); Hemoglobin 11.1 g/dL (14.0-18.0); Lymphocyte % 9.9 %; Mean Corpuscular HGB Conc 35 g/dL (31-36); Mean Corpuscular Hemoglobin 32 pg (27-31); Mean Corpuscular Volume 93 fL (80-94); Mean Platelet Volume 7.3 fL (7.4-10.4); Nucleated Red Blood Cells % 0.1; Platelet Count 218 10^3/uL (150-450); Red Blood Count 3.46 10^6 /uL (4.18-5.48); Red Cell Distribution Width 14 % (10-15); White Blood Count 9.9 10^3/uL (3.5-10.8)
[2019-01-29 03:22] LABS: INR 2.12 (0.82-1.09)
[2019-01-29 03:35] LABS: Albumin/Globulin Ratio 1.3 (1-3); BUN/Creatinine Ratio 19.2 (8-20); Calcium 8.8 mg/dL (8.6-10.3); EGFR African American 91.5 (>60); EGFR Non-African American 75.6 (>60); Globulin 3.2 g/dL (2-4); Potassium 4.1 mmol/L (3.5-5.0); Total Bilirubin 0.9 mg/dL (0.2-1.0); Total Protein 7.2 g/dL (6.4-8.9)
[2019-01-29] MEDS ORDERED: Iohexol 350* (CONTRAST) 500 ML MDV IV ONE (03:41)
[2019-01-29] MEDS ORDERED: cefTRIAXone(*) 2 GM in NS 0.9% 100 ML* 100 ML IVPB ONE (06:45)
[2019-01-29] MEDS ORDERED: Azithromycin 500 mg/250 ml NS 500 MG/250 ML BAG IVPB ONE (06:46)
--- NOTE | 2019-01-29 08:09 | ADMNOTE ---
Review of Systems - Measurements Intake and Output: Intake and Output Last 24 Hours 01/27/19 01/28/19 01/29/19 01/30/19 06:59 06:59 06:59 06:59 Weight 260 lb Objective Vital Signs - 8 hr 01/29/19 01/29/19 01/29/19 01:08 01:09 01:39 Pulse Rate 97 97 90 Respiratory 25 27 25 Rate Blood Pressure 127/95 109/84 (mmHg) O2 Sat by Pulse 95 95 96 Oximetry 01/29/19 01/29/19 01/29/19 02:00 02:09 03:00 Pulse Rate 87 89 98 Respiratory 20 29 23 Rate Blood Pressure 114/84 (mmHg) O2 Sat by Pulse 96 96 95 Oximetry 01/29/19 01/29/19 01/29/19 03:09 03:39 04:00 Pulse Rate 90 88 102 Respiratory 24 20 32 Rate Blood Pressure 110/90 113/90 (mmHg) O2 Sat by Pulse 95 96 94 Oximetry 01/29/19 01/29/19 01/29/19 04:30 04:39 05:00 Pulse Rate 100 94 95 Respiratory 21 23 19 Rate Blood Pressure 126/95 119/89 (mmHg) O2 Sat by Pulse 94 96 97 Oximetry 01/29/19 01/29/19 01/29/19 05:09 05:39 06:00 Pulse Rate 110 90 109 Respiratory 16 27 25 Rate Blood Pressure 118/90 130/97 (mmHg) O2 Sat by Pulse 94 94 96 Oximetry 01/29/19 01/29/19 06:09 06:39 Pulse Rate 88 101 Respiratory 20 24 Rate Blood Pressure 126/89 120/84 (mmHg) O2 Sat by Pulse 96 97 Oximetry Result Diagrams: 01/29/19 03:03 01/29/19 03:03 Assess/Plan/Problems-Billing Assessment:
--- NOTE | 2019-01-29 08:27 | CONSULT ---
Subjective Interval History: 68 yo male with history of afib on xarelto came in [facility] complaints of hemoptysis. He was recently at [facility] (on friday) and left AMA because he was frustrated he said. He was discharged on levaquin. He was not given oxygen at discharge since he left AMA. Pt was on 2L at [facility]. Now he comes to the ED with complaints of blood in his sputum. he said his sputum is blood-tinged and since he is on blood thinner, he was worried. In the ED he was hypoxemic and placed on 2L NC. Nofevers, His BP is normal, he is mildly tachycardic. His initial lab work showed no leukocytosis. She had a CTA in the ED which showed B/L pnas. ROS: neg other than for productive cough and blood tinged sputum PMHx: atrial fibrillation on xarelto and Cartia home medications: Atenolol TAB* [Tenormin TAB* 50 MG] 100 mg PO DAILY 01/29/19 [History Confirmed 01/29/19] Rivaroxaban TAB(*) [Xarelto 20 mg] 20 mg PO DAILY 01/29/19 [History Confirmed ] dilTIAZem HCl [Cartia Xt] 240 mg PO DAILY 01/29/19 [History Confirmed 01/29/19] levoFLOXacin [Levofloxacin] 1 tab PO DAILY 01/29/19 [History Confirmed 01/29/19] Family History: Unchanged from Admission Social History: Unchanged from Admission Past Medical History: Unchanged from Admission Review of Systems - Measurements Intake and Output: Intake and Output Last 24 Hours 01/27/19 01/28/19 01/29/19 01/30/19 06:59 06:59 06:59 06:59 Intake Total 100 Balance 100 Weight 260 lb Intake: IV Fluids 100 - Review of Systems Constitutional Symptoms: Negative: Weight Gain, Weight Loss, Weakness, Fatigue, Fever, Night Sweats, Unexplained Falls, Other Dermatology: Negative: Normal, Rash, Skin Lesions, Cancer, Skin Lumps, Other HEENT: Negative: Normal, Change in Hearing, Vertigo, Dental Problems, Tinnitus, Sinus Problem, Other Eyes: Negative: Normal, Change in Vision, Double Vision, Eye Pain, Glaucoma, Cataract, Contacts or Glasses, Other Thyroid: Negative: Normal, Goiter, Thyroid Nodule, Cold Intolerance, Heat Intolerance , Sweatiness, Tremor, Frequent Defecation, Constipation, Palpitations, Primary Hypothyroidism, Primary Hyperthyroidism, Weight Loss, Weight Gain, Change in Skin/Hair, Change in Menstruation, Radiation Exposure, Other Pulmonary: Positive: Cough, Sputum, Hemoptysis Cardiology: Negative: Normal, Chest Pain, Shortness of Breath, Palpitations, Swelling of Ankles, Peripheral Vascular Dis, Edema, Faintness, Syncope, Claudication, Proximal NocturnalDyspnea, Orthopnoea, Other Gastroenterology: Negative: Normal, Abdominal Pain, Nausea, Vomiting, Anorexia, Indigestion, Difficulty Swallowing, Heartburn, Constipation, Diarrhea, Blood in Stools, Change in Bowel Habits, Haematemesis, Melena, Other Genital - Urinary: Negative: Normal, Dysuria, Hematuria, Polyuria, Nocturia, Other Genitourinary - Male: Negative: Prostatism, Erectile Dysfunction, Family Hx of Prostate Cancer, Other Musculoskeletal: Negative: Joint Pain, Joint Stiffness, Arthritis, Osteoporosis, Low Back Pain , Sciatica, Joint Deformities, Kyphoscoliosis, Other Endocrinology: Negative: Normal, Thyroid Problems, Adrenal Problems, Gonadal Problems, Family Hx Endocrine Disorders, Obesity, Diabetes Mellitus, Hyperglycemia, Hx Hypoglycemia, Diabetic Foot Ulcers, Calluses, Hirsutism, Menstrual Abnormalities , Polydipsia, Polyuria, Gonadal Problems, Gynecomastia, Pituitary disease, Other Hematologic/Lymphatic: Negative: Anemia, Easy Bruising, Hx Leukemia, Hx Lymphoma, Use of Anticoagulant, Use of Antiplatelet Drugs, Other Neurology: Negative: Normal, Headache, Migraines, Change in Vision, Diplopia, Dizziness , Change in Balancing, Change in Coordination, Change in Memory, Change in Speech, Change in Sphincter Function, Change in Walking, Numbness\Paresthesiae, Unexplained Weakness, Hx of Stroke\TIA, Hx of Seizures, Other Psychiatry: Negative: Normal, Depression, Anxiety, Depressed Mood, Anhedonia, Sexual Dysfunction, Weight Change, Guilt Feelings, Tearfulness, Unusual Fatigue, Unusual Anxiety, Suicidal Ideation, Hypomania, Eating Disorders, Other Objective Vital Signs - 8 hr 01/29/19 01/29/19 01/29/19 01:08 01:09 01:39 Pulse Rate 97 97 90 Respiratory 25 27 25 Rate Blood Pressure 127/95 109/84 (mmHg) O2 Sat by Pulse 95 95 96 Oximetry 01/29/19 01/29/19 01/29/19 02:00 02:09 03:00 Pulse Rate 87 89 98 Respiratory 20 29 23 Rate Blood Pressure 114/84 (mmHg) O2 Sat by Pulse 96 96 95 Oximetry 01/29/19 01/29/19 01/29/19 03:09 03:39 04:00 Pulse Rate 90 88 102 Respiratory 24 20 32 Rate Blood Pressure 110/90 113/90 (mmHg) O2 Sat by Pulse 95 96 94 Oximetry 01/29/19 01/29/19 01/29/19 04:30 04:39 05:00 Pulse Rate 100 94 95 Respiratory 21 23 19 Rate Blood Pressure 126/95 119/89 (mmHg) O2 Sat by Pulse 94 96 97 Oximetry 01/29/19 01/29/19 01/29/19 05:09 05:39 06:00 Pulse Rate 110 90 109 Respiratory 16 27 25 Rate Blood Pressure 118/90 130/97 (mmHg) O2 Sat by Pulse 94 94 96 Oximetry 01/29/19 01/29/19 01/29/19 06:09 06:39 07:00 Pulse Rate 88 101 98 Respiratory 20 24 23 Rate Blood Pressure 126/89 120/84 (mmHg) O2 Sat by Pulse 96 97 97 Oximetry 01/29/19 01/29/19 01/29/19 07:09 07:39 08:00 Pulse Rate 106 101 92 Respiratory 20 29 16 Rate Blood Pressure 120/96 136/88 (mmHg) O2 Sat by Pulse 97 96 96 Oximetry Oxygen Devices in Use Now: Nasal Cannula Eyes: No Scleral Icterus, PERRLA Ears/Nose/Mouth/Throat: Clear Oropharnyx, Mucous Membranes Moist Neck: NL Appearance and Movements; NL JVP, Trachea Midline Respiratory: Symmetrical Chest Expansion and Respiratory Effort, - - crackles at the bases Cardiovascular: - - tachycardia Abdominal: NL Sounds; No Tenderness; No Distention Lymphatic: No Cervical Adenopathy Skin: No Rash or Ulcers, No Nodules or Sclerosis Neurological: Alert and Oriented x 3 Result Diagrams: 01/29/19 03:03 01/29/19 03:03 Assessment/Plan - Billing Plan By Medical Problem: 1. CAP: hemoptysis is not uncommon with PNA and especially on a pt who is on Xarelto. Clinically he looks great. He was discharged from [facility] on abx and did not miss a dose. His only barrier to discharge now is that he needs oxygen at home while gets over this PNA. 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 He should continue his levaquin uninterrupted at home. 2. A fib: cont his home meds while he awaits his oxygen. VTE PPX: xarelto Diet: regular diet Code Status: Full code Admission Status and Rationale:
[2019-01-29] MEDS ORDERED: Levofloxacin TAB* 500 MG PO SCH ×2 (09:00→18:00)
[2019-01-29] MEDS ORDERED: Acetaminophen TAB* 325 MG PO PRN (09:29)
[2019-01-29] MEDS ORDERED: Albuterol 2.5 MG/3 ML NEB.SOL* (0.083%) INH PRN (09:30)
[2019-01-29] MEDS ORDERED: Diltiazem CD CAP* 240 MG PO SCH ×2 (10:00→18:00)
[2019-01-29] MEDS ORDERED: Atenolol TAB* 50 MG PO SCH ×2 (10:00→18:00)
[2019-01-29 13:40] VITALS: BP 128/78
[2019-01-29] MEDS ORDERED: Rivaroxaban TAB(*) 20 MG TAB PO SCH (18:00)
--- NOTE | 2019-01-29 21:35 | DS ---
CC: Dr. Jyoti Zamora; Dr. Lu DISCHARGE SUMMARY: DATE OF ADMISSION: 01/29/19 DATE OF DISCHARGE: 01/29/19 PRIMARY CARE PROVIDER: Dr. Jyoti Zamora. DISCHARGE DIAGNOSES: 1. Community-acquired pneumonia. 2. Acute hypoxic respiratory failure. 3. Chronic obstructive pulmonary disease. 4. Hemoptysis. 5. Atrial fibrillation, on anticoagulation with Xarelto. MEDICATION LIST: 1. Levofloxacin 500 mg p.o. daily. 2. Diltiazem 240 mg p.o. daily. 3. Rivaroxaban 20 mg p.o. daily. 4. Atenolol 100 mg p.o. daily. HOSPITAL COURSE: Mr. Valles is a 68-year-old male who presented initially to [facility] with com plaints of shortness of breath, cough, and hemoptysis. He was transferred from [place] to [facility] here he was found to be in atrial fibrillation with rapid ventricular rate and needed to be admitted to the intensive care unit. His CT of the chest demonstrated left upper lobe consolidation as well a s potential blood in the left main bronchus. He was treated with antibiotics and initially he also r eceived octreotide and Protonix drips while in ICU. Unfortunately, the patient signed out against [facility] advice on 01/26/19. At that time, he was too dyspneic and had an oxygen saturation of 88% on ro om air. He received prescriptions to complete 7 days of Levaquin treatment for his pneumonia was dis charged on Cardizem, atenolol, and Xarelto. He states that he went home and as he continued to be sh ort of breath, he felt that he would require oxygen. He presented to the emergency room and he was f ound to be afebrile with mild tachycardia. His CBC showed a normal white cell count and his chemistr ies did not show significant abnormalities. The patient was admitted for symptomatic treatment, and so we could make arrangements for him to have home oxygen. He was seen by bilingual case manager who made ricky che, and he will receive supplemental oxygen, 2 L via nasal cannula. The patient was anxious fo r discharge and says that he has had significant symptomatic treatment since being treated with Levaq uin. His dyspnea is much improved. He still has cough with very scant sputum and a small amount of b lood. The patient was educated about nature of hemoptysis and he felt well enough to be discharged h ome. His was present during my interview, and she confirmed that the patient looks much improve d and was also comfortable with a plan for him to be discharged home. PHYSICAL EXAMINATION: Vital Signs: Temperature 97.9, heart rate is 95, respiratory rate is 16, oxyg en saturation 96% on 2 L nasal cannula, blood pressure is 128/78. General: The patient is an elderl y gentleman, sitting up in bed, in no acute distress. CVS: Normal S1, S2. Irregularly irregular. Chest: Breath sounds present bilaterally with crackles in left base. Neuro: He is alert and orient ed x3. Able to move all 4 extremities. DIET: Heart-healthy diet. ACTIVITIES: As tolerated. DISPOSITION: To home. STATUS WHILE IN THE HOSPITAL: Observation. CONDITION AT THE TIME OF DISCHARGE: Fair. PLAN: The patient already has an appointment scheduled to see Dr. Lu on 02/02/19 and he was e ncouraged to keep this appointment. The patient and his also received education about symptoms that would prompt his return to the emergency department. Please keep in mind this is a summarized version of this patient's hospital stay. If you need more in formation, please feel free to call me at [phone] or please obtain the full medical records. TIME SPENT: Approximately 45 minutes was spent to complete this discharge. [id number]/[facility] #: [id number]
[2019-01-30] MEDS ORDERED: SPIRIVA Respimat* (tiotropium) 2.5 mcg/inh Inhaler INH SCH (09:00)
--- NOTE | 2019-01-30 15:52 | HP ---
CC: Dr. Zamora HISTORY AND PHYSICAL: DATE OF ADMISSION: PRIMARY CARE PROVIDER: Dr. Zamora. CHIEF COMPLAINT: Shortness of breath. HISTORY OF PRESENT ILLNESS: Mr. Valles is a 68-year-old male with a past medical history of COPD, atria l fibrillation, who was recently admitted to [facility] with pneumonia and AFib with rapid ventricular r ate. He left against medical advice, but he was still feeling short of breath, so he presented to [facility] emergency room requesting oxygen. For more details about his presentation, I refer you to Dr. Indigo torres's consultation report. PAST MEDICAL HISTORY: 1. Atrial fibrillation. 2. COPD. 3. Recent admission for pneumonia. MEDICATION LIST: 1. Atenolol 100 mg p.o. daily. 2. Rivaroxaban 20 mg p.o. daily. 3. Diltiazem CD 240 mg p.o. daily. 4. Levofloxacin 500 mg p.o. daily to complete 7 days. FAMILY HISTORY: The patient does not recall the reasons why his parents passed. SOCIAL HISTORY: The patient was a smoker, he quit 8 years ago and he used to smoke pipe. He denies alcohol or drug use. Surrogate decision maker is his . REVIEW OF SYSTEMS: Please see Dr. Pina's consultation report. PHYSICAL EXAMINATION GENERAL: The patient is an elderly gentleman, sitting up in bed, in no acute distress. VITAL SIGNS: Temperature 97.1, heart rate is 94, respiratory rate is 16, oxygen saturation is 87% on room air, 93% on 3 L, blood pressure is 104/78. CHEST: Breath sounds bilaterally diminished with no added sounds. CVS: Normal S1, S2. Regular rate and rhythm. NEUROLOGIC: He is alert and oriented x3. Able to move all 4 extremities. LABORATORY AND IMAGING DATA: I refer you to Dr. Pina's consultation. ASSESSMENT AND PLAN: Mr. Valles is a 68-year-old male with past medical history as stated above that pr esents to the emergency room with complaints of shortness of breath after signing out AMA from [facility]. Initially, the patient declined admission, but as he still had shortness of breath and exacerbated wi th exertion, he was agreeable to be admitted. He was admitted to continue on his same treatment and arrangements will be made for him to obtain oxy gen. TIME SPENT: Approximately 40 minutes was spent with patient interview, medical records review, physi zack examination to complete this admission, more than half of this time was spent [id number] with t he patient and coordination of care. [id number]/[facility] #: [id number]
== END 2019-01-29 16:50 | disposition home or self-care (01) ==
LOC: ED 22:03 → MED 01-29 09:22
PROVIDERS: ADMIT Internal Medicine; ATTEND Internal Medicine
DX: J18.9 Pneumonia, unspecified organism (principal); J96.01 Acute respiratory failure with hypoxia; J44.9 Chronic obstructive pulmonary disease, unspecified; R04.2 Hemoptysis; I48.91 Unspecified atrial fibrillation; Z79.01 Long term (current) use of anticoagulants; Z79.899 Other long term (current) drug therapy; Z87.891 Personal history of nicotine dependence; R06.02 Shortness of breath
CPT/HCPCS: 36415; 71046; 71275; 80053; 83605; 83880; 84484; 85025; 85610; 87040; 93005; 96374; 99283; A9270-GY; G0378; J0456; J0696; J3535; Q9967